=== PATIENT | male | born 1955 | race African-American/Black ===

== ENCOUNTER 2017-03-17 08:33 | Emergency (ER) | payer SELFPAY ==
[2017-03-17] MEDS ORDERED: Ketorolac Tromethamine 30 MG/ML VIAL ONE (10:28)
--- NOTE | 2017-03-17 11:05 | RAD ---
LEFT HIP TWO VIEWS: HISTORY: A 61-year-old male with left hip pain radiating to the left leg. FINDINGS: There are noted to be some arthrosis changes of both hip joints with some minimal subchondral cystic change. No acute fracture or dislocation. 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 No acute fracture or dislocation. POS: OFF
--- NOTE | 2017-03-17 11:17 | RAD ---
LUMBAR SPINE 3 VIEWS: HISTORY: A 61-year-old male with low back pain and left hip pain. FINDINGS: Multilevel disk-osteophytosis. Generalized facet arthrosis. No acute compression fracture. No sig nificant malalignment. IMPRESSION: Severe spondylosis. No acute process. POS: OFF
== END 2017-03-17 11:12 | disposition home or self-care (01) ==
LOC: ERS 08:33
DX: M54.42 Lumbago with sciatica, left side (principal); I10 Essential (primary) hypertension; F17.210 Nicotine dependence, cigarettes, uncomplicated; Z79.899 Other long term (current) drug therapy
CPT/HCPCS: 72100; 96372; J1885